=== PATIENT | female | born 2000 | race Hispanic/Latino ===

== ENCOUNTER 2025-02-20 09:05 | Emergency (ER) | payer OTHER, SELFPAY ==
[2025-02-20 09:14] VITALS: BP 142/88
[2025-02-20 09:27] VITALS: BMI 36.3
[2025-02-20 09:45] LABS: COVID-19 Antigen Negative (Negative)
[2025-02-20 09:54] VITALS: BP 128/87
[2025-02-20 09:56] VITALS: BP 128/87
--- NOTE | 2025-02-20 10:08 | ED.GENMED ---
History of Present Illness
General
Chief Complaint: Cold/Flu/URI Symptoms
Source: patient
Exam Limitations: none
Time Seen by Provider: 02/20/25 09:26
Nursing documentation reviewed up to this point in time: agreed with
History of Present Illness
History of Present Illness:
24-year-old female with a history of migraines presents for 4 days of subjective fever, chills, cough, sore throat, body aches, vomiting and diarrhea. Patient says it all started 4 days ago with all of the symptoms, the vomiting and diarrhea
resolved after 1 day but she has continued to have subjective chills, hoarse voice, sore throat, and a very frequent cough. The cough is keeping her up at night. 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
sick before her. She has never had any history of asthma and there is been no recent travel. She has chest discomfort with coughing. She has no history of DVT or PE. Patient took Excedrin Migraine for her headache yesterday last dose which did
not help. She is complaining of a 10 out of 10 global headache. There is no red flag symptoms with this headache and it feels similar to her previous migraine
Past History
Past History
ED Past Medical History: Other ( migraine)
ED Past Surgical History: None
Social History
Tobacco: Non-smoker
Alcohol: None
Drug: None
Personal:
Living: with family
Employment: Employed
Review of Systems
Review of Systems
Allergies reviewed?: Yes
All Other Systems: Not applicable
Phy Exam
Physical Exam
Physical Exam:
GENERAL: Alert , in no apparent distress, frequent coughing
EYE: pupils equal and reactive
NECK: Supple
ENT: b/l TM s clear, pharynx erythematous but no tonsillar hypertrophy or exudates, hoarse voice, tolerating secretions
CARDIAC: Heart rate 100, no edema
LUNGS: Spastic frequent dry cough, wheezing with coughing, clears with cough. No splinting, no tachypnea
ABDOMEN: Soft, without focal tenderness, no r/g, no cvat, normal bowel sounds
NEUROLOGICAL: Alert and oriented, no focal neuro deficits
SKIN: Warm and dry, skin intact.
MUSCULOSKELETAL: No edema, well perfused.
PSYCH: Normal and appropriate interaction.
Course
Orders/Labs/Results
Orders:
Orders
02/20/25 09:19
COVID-19 Antigen Urgent
Source: Nasal Swab
02/20/25 10:05
0.9% Sodium Chloride 1000 ml [Nss] 1,000 ml IV BOLUS
Ketorolac [Toradol] 30 mg IV NOW STA
CR Chest - 2 Views Urgent
Comment:
Reason For Exam: cough, fever 4 days, covid neg
02/20/25 10:08
Albuterol Nebs [Ventolin Nebules] 2.5 mg INH R NOW STA
02/20/25 10:17
Complete Blood Count/With Diff Urgent
Comprehensive Metabolic Panel Urgent
Influenza A+B Rapid Molecular Urgent
[facility] Source: Nasal Swab
Specimen Description:
02/20/25 11:44
Dexamethasone Sod Phosphate [Decadron] 10 mg IV NOW STA
Abnormal Lab Results
02/20/25
10:17
WBC 12.7 H 10^3/uL
(4.8-10.8)
RBC 4.09 L 10^6/uL
(4.20-5.40)
Hct 35.1 L %
(37.0-47.0)
Abs Immat Gran (auto) 0.1 H 10^3/uL
(0-0.05)
Absolute Neuts (auto) 9.1 H 10^3/uL
(1.4-6.5)
Absolute Monos (auto) 1.3 H 10^3/uL
(0.1-0.6)
Lymphocytes % 16.2 L %
(20.5-51.1)
Monocytes % 10.0 H %
(1.7-9.3)
ALT 46 H U/L
(0-35)
02/20/25 10:17
02/20/25 10:17
Vital Signs
Pulse: 84
Blood pressure: 133/77
Initial and Last Documented VS:
Initial Vital Signs
Temp Pulse Resp BP Pulse Ox
36.8 C 108 16 142/88 98
02/20/25 09:14 02/20/25 09:14 02/20/25 09:14 02/20/25 09:14 02/20/25 09:14
Last Documented Vital Signs
Temp Pulse Resp BP Pulse Ox
36.8 C 100 18 128/87 97
02/20/25 09:14 02/20/25 09:56 02/20/25 09:56 02/20/25 09:56 02/20/25 10:08
MDM/Problems Addressed
Differential Diagnosis Includes:
asthamtic bronchitis, pna, covid, flu
*Pulse Oximetry
SaO2: 97
Oxygen Mode of Delivery: Room air
ED Attending Note
-
Portions of this chart may have been created with voice recognition software.� Occasional wrong word or��sound alike� substitutions may have occurred due to the inherent limitations of voice recognition software.
Discharge Plan
Departure
Patient Disposition: Home (Routine Discharge)
Date of Disposition: 02/20/25
Time of Disposition: 11:44
Patient with high blood pressure during this ER visit?: Yes
Condition: Fair
Covid-19: Negative COVID-19
Discharge Problem:
Acute upper respiratory infection
Instructions: Viral Upper Respiratory Infection, Adult (DC)
Prescriptions:
New
albuterol sulfate [Ventolin HFA] 90 mcg/actuation HFA aerosol inhaler
2 puff inhalation Q6H PRN (Reason: shortness of breath or wheezing) Qty: 6.7 0RF
azithromycin [Zithromax Z-Travis] 250 mg tablet
See Rx Instructions .ROUTE .COMPLEX 6 Days Qty: 6 0RF
Rx Instructions:
500 mg PO day 1, then 250 mg po days 2-5
(DME) Aerochamber MV Spacer
See Rx Instructions .Route Qty: 10 0RF
Rx Instructions:
As directed
Referrals:
PRIVATE,PHYSICIAN [Family Provider, Internal Medicine]
Stand Alone Forms: Return to Work
Activity Restrictions/Additional Instructions:
You likely have a virus causing your symptoms. Your flu and COVID were negative. Your chest x-ray was negative for pneumonia. You were given a dose of steroids to help with your cough and your wheezing. Use the inhaler 2 puffs every 4-6 hours
through a spacer as needed for your cough.
Drink plenty of fluids, rest take Tylenol or Motrin for pain. Your symptoms should improve in the next 2 to 3 days. If you are still having fevers or cough that is worsening you can start the antibiotic prescribed. Return for any concerns like
chest pain or shortness of breath
Interventions
Interventions:
*Risk Screen - Suicide Last Done: 02/20/25 09:14
*General Assessment Last Done: 02/20/25 09:27
*Neglect/Abuse Screening Last Done: 02/20/25 09:14
*ED- Fall Risk Assessment Last Done: 02/20/25 09:27
*ED COVID-19 Vaccine History Last Done: 02/20/25 09:27
ED- Pulmonary Assessment Last Done: 02/20/25 09:28
Discharge Date and Time
Print Language: JAPANESE
[2025-02-20] MEDS: TORADOL 30 MG IV (10:19)
[2025-02-20] MEDS: NSS 1000 IV (10:19)
[2025-02-20] MEDS: VENTOLIN NEBULES 2.5 MG INH (10:24)
[2025-02-20 10:44] LABS: Hematocrit 35.1 % (37.0-47.0); Hemoglobin 12.3 g/dL (12.0-16.0); Mean Corp Hgb Conc. 35.0 g/dL (33.0-37.0); Mean Corpuscular Volume 85.8 fL (81.0-99.0); Nucleated Red Blood Cells % 0 %; Platelet Count 277 10^3/uL (130-400); Red Cell Dist. Width 11.9 % (11.5-14.5)
[2025-02-20 10:53] LABS: ALT (SGPT) 46 U/L (0-35); AST (SGOT) 31 U/L (14-36); Albumin 4.0 g/dl (3.5-5.0); Alkaline Phosphatase 80 U/L (38-126); Blood Urea Nitrogen 7 mg/dl (7-17); Calcium 9.7 mg/dl (8.4-10.2); Carbon Dioxide 29 mmol/L (22-30); Chloride 103 mmol/L (98-107); Estimated Creatinine Clearance > 125 ml/min; Glucose 99 mg/dl (70-99); Potassium 3.9 mmol/L (3.5-5.1); Sodium 138 mmol/L (135-145); Total Protein 6.7 g/dl (6.3-8.2); eGFR > 60.00
[2025-02-20] MEDS: DECADRON 10 MG IV (11:50)
== END 2025-02-20 12:30 | disposition home or self-care (01) ==
LOC: EMR 09:05
PROVIDERS: Physician Assistant; EMERGENCY PHYSICIAN Emergency Medicine
DX: J06.9 Acute upper respiratory infection, unspecified (principal)
CPT/HCPCS: 99283; 94640; 96374; 96375; 71046; 80053; 85025; 87502; 87811